=== PATIENT | male | born 1990 | race Caucasian/White ===

== ENCOUNTER 2020-02-18 17:23 | Emergency (ER) | payer MEDICAID ==
[~2020-02-18] VITALS: Ht 175.3 cm; Wt 73.4 kg
[2020-02-18 17:36] VITALS: BP 123/75
== END 2020-02-18 17:51 | disposition home or self-care (01) ==
LOC: ER 17:25
DX: F11.10 Opioid abuse, uncomplicated (principal); Z00.01 Encounter for general adult medical examination with abnormal findings
CPT/HCPCS: 99281

== ENCOUNTER 2020-08-24 18:24 | Emergency (ER) | payer MEDICAID ==
[~2020-08-24] VITALS: Ht 175.3 cm; Wt 72.7 kg
[2020-08-24 18:32] VITALS: BP 116/64
== END 2020-08-24 20:07 | disposition home or self-care (01) ==
LOC: ER 18:25
DX: Z02.89 Encounter for other administrative examinations (principal); F11.90 Opioid use, unspecified, uncomplicated
CPT/HCPCS: 99281